=== PATIENT | male | born 1965 | race Caucasian/White ===

== ENCOUNTER 2016-11-03 19:46 | Observation (INO) | payer MEDICARE, MEDICAID ==
[2016-11-03] MEDS ORDERED: Sodium Chloride 0.9% 10 ML Syringe FLUSH PRN ×2 (19:51→21:50)
[2016-11-03] MEDS ORDERED: Sodium Chloride 0.9% 2.5 ML Syringe FLUSH PRN ×2 (19:51→21:50)
--- NOTE | 2016-11-03 19:59 | EDM.PDOC ---
ED HPI GENERAL MEDICAL PROBLEM - General Chief Complaint: General Stated Complaint: INTOXICATED Time Seen by Provider: 11/03/16 19:50 - History of Present Illness INITIAL COMMENTS - FREE TEXT/NARRATIVE: HISTORY AND PHYSICAL: History of present illness: Patient 51-year-old white male history of alcohol abuse/dependence who presents status post fall he was drinking tonight he fell striking his right head brought by paramedics history is very unclear due to patient's baseline he denies chest pain patient does complain of neck pain he is not report clear loss of consciousness patient denies abdominal pain or extremity trauma or concern patient doesn't knowledge alcohol use tonight with intoxication and does acknowledge abuse/dependence Review of systems: As per history of present illness and below otherwise all systems reviewed and negative. Past medical history: As per history of present illness and as reviewed below otherwise noncontributory. Surgical history: As per history of present illness and as reviewed below otherwise noncontributory. Social history: No reported history of drug or alcohol abuse. Family history: As per history of present illness and as reviewed below otherwise noncontributory. Physical exam: HEENT: Patient has abrasion contusion and small hematoma to his right temporal and periorbital area, normocephalic, pupils reactive, negative for conjunctival pallor or scleral icterus, mucous membranes moist, throat clear, neck supple, nontender, trachea midline. Lungs: Clear to auscultation, breath sounds equal bilaterally, chest nontender. Heart: S1S2, regular, negative for clicks, rubs, or JVD. Abdomen: Soft, nondistended, nontender. Negative for masses or hepatosplenomegaly. Negative for costovertebral tenderness. Pelvis: Stable nontender. Genitourinary: Deferred. Rectal: Deferred. Extremities: Atraumatic, negative for cords or calf pain. Neurovascular unremarkable. Neuro: Awake, answers questions appropriately follows commands moves all extremities has limited grossly nonfocal exam Diagnostics: CBC CMP UA UDS EtOH EKG chest x-ray CT brain and facial bones cervical spine Therapeutics: IV O2 monitor Impression: #1 observation status post fall #2 blunt head trauma #3 rule out cerebral concussion #4 history of alcohol abuse/dependence with acute intoxication Definitive disposition and diagnosis as appropriate pending reevaluation and review of above. ED ROS GENERAL - Review of Systems Review Of Systems: ROS reveals no pertinent complaints other than HPI. ED EXAM, GENERAL - Physical Exam Exam: See Below (See dictated) Course - Orders/Labs/Meds Orders: Active Orders 24 hr Category Date Time Status Cardiac Monitoring [RC] . DIRECTED Care 11/03/16 19:50 Ordered EKG Documentation Completion [RC] STAT Care 11/03/16 19:50 Ordered Oxygen Therapy, ED [RC] ASDIRECTED Care 11/03/16 19:50 Ordered Pulse Oximetry [RC] ASDIRECTED Care 11/03/16 19:50 Ordered Cervical Spine wo Cont [CT] Stat Exams 11/03/16 19:50 Ordered Head wo Cont [CT] Stat Exams 11/03/16 19:51 Ordered Max Facial Sinus wo Cont [CT] Stat Exams 11/03/16 19:51 Ordered CBC WITH AUTO DIFF [HEME] Stat Lab 11/03/16 19:50 Ordered COMPREHENSIVE METABOLIC PN,CMP [CHEM] Stat Lab 11/03/16 19:50 Ordered DRUG SCREEN, URINE [URCHEM] Stat Lab 11/03/16 19:50 Uncollected ETHANOL BLOOD MEDICAL [CHEM] Stat Lab 11/03/16 19:50 Ordered INR,PT,PROTHROMBIN TIME [COAG] Stat Lab 11/03/16 19:50 Ordered Sodium Chloride 0.9% [Normal Saline] 1,000 ml Med 11/03/16 20:00 Ordered IV STAT Sodium Chloride 0.9% [Saline Flush] Med 11/03/16 19:51 Ordered 10 ml FLUSH ASDIRECTED PRN Sodium Chloride 0.9% [Saline Flush] Med 11/03/16 19:51 Ordered 2.5 ml FLUSH ASDIRECTED PRN Saline Lock Insert [OM.PC] Stat Oth 11/03/16 19:50 Ordered Medication Orders Sodium Chloride (Normal Saline) 1,000 mls @ 125 mls/hr IV STAT [facility] Sodium Chloride (Saline Flush) 10 ml FLUSH ASDIRECTED PRN PRN Reason: Keep Vein Open Sodium Chloride (Saline Flush) 2.5 ml FLUSH ASDIRECTED PRN PRN Reason: Keep Vein Open Meds: Medications Generic Name Dose Route Start Last Admin Trade Name Freq PRN Reason Stop Dose Admin Sodium Chloride 1,000 mls @ 125 mls/hr 11/03/16 20:00 Normal Saline IV STAT CATH[facility]INE Sodium Chloride 10 ml 11/03/16 19:51 Saline Flush FLUSH ASDIRECTED PRN Keep Vein Open Sodium Chloride 2.5 ml 11/03/16 19:51 Saline Flush FLUSH ASDIRECTED PRN Keep Vein Open Departure - Departure Time of Disposition: 19:59 Disposition: Refer to Observation Condition: good (Head injury) Clinical Impression: Head injury, Alcohol abuse Forms: ED Department Discharge - My Orders Last 24 Hours: My Active Orders 11/03/16 19:50 Cardiac Monitoring [RC] . DIRECTED EKG Documentation Completion [RC] STAT Oxygen Therapy, ED [RC] ASDIRECTED Pulse Oximetry [RC] ASDIRECTED Cervical Spine wo Cont [CT] Stat CBC WITH AUTO DIFF [HEME] Stat COMPREHENSIVE METABOLIC PN,CMP [CHEM] Stat DRUG SCREEN, URINE [URCHEM] Stat ETHANOL BLOOD MEDICAL [CHEM] Stat INR,PT,PROTHROMBIN TIME [COAG] Stat Saline Lock Insert [OM.PC] Stat 11/03/16 19:51 Head wo Cont [CT] Stat Max Facial Sinus wo Cont [CT] Stat Sodium Chloride 0.9% [Saline Flush] 10 ml FLUSH ASDIRECTED PRN Sodium Chloride 0.9% [Saline Flush] 2.5 ml FLUSH ASDIRECTED PRN 11/03/16 20:00 Sodium Chloride 0.9% [Normal Saline] 1,000 ml IV STAT - Assessment/Plan Last 24 Hours: My Active Orders 11/03/16 19:50 Cardiac Monitoring [RC] . DIRECTED EKG Documentation Completion [RC] STAT Oxygen Therapy, ED [RC] ASDIRECTED Pulse Oximetry [RC] ASDIRECTED Cervical Spine wo Cont [CT] Stat CBC WITH AUTO DIFF [HEME] Stat COMPREHENSIVE METABOLIC PN,CMP [CHEM] Stat DRUG SCREEN, URINE [URCHEM] Stat ETHANOL BLOOD MEDICAL [CHEM] Stat INR,PT,PROTHROMBIN TIME [COAG] Stat Saline Lock Insert [OM.PC] Stat 11/03/16 19:51 Head wo Cont [CT] Stat Max Facial Sinus wo Cont [CT] Stat Sodium Chloride 0.9% [Saline Flush] 10 ml FLUSH ASDIRECTED PRN Sodium Chloride 0.9% [Saline Flush] 2.5 ml FLUSH ASDIRECTED PRN 11/03/16 20:00 Sodium Chloride 0.9% [Normal Saline] 1,000 ml IV STAT
[2016-11-03] MEDS ORDERED: Sodium Chloride 0.9% 1,000 ML IV SCH (20:00)
[2016-11-03 20:40] LABS: CHLORIDE,CL 110 mmol/L (98-110); SODIUM,NA 140 mmol/L (136-146)
[2016-11-03] MEDS: Nicotine 21 MG/24 Hr Patch TRDERM SCH (22:58)
--- NOTE | 2016-11-04 09:35 | PCM.HP ---
H&P History of Present Illness - General Date of Service: 11/03/16 Admit Problem/Dx: Admission Diagnosis/Problem Admission Diagnosis/Problem Concussion injury of brain Source of Information: Patient History Limitations: Reports: Intoxication - History of Present Illness Initial Comments - Free Text/Narative: 51 y o man with long history of heavy drinking suffered a fall at home under unclear circumstances, hitting his head H e complains mainly of unchanged chronic neck pain, no acute njuries found on x rays, but alcohol level was 242, for which he was admitted Symptom Onset Date: 11/03/16 Neck Pain Score (Numeric/FACES): 10 - Related Data Allergies/Adverse Reactions: Allergies Allergy/AdvReac Type Severity Reaction Status Date / Time No Known Allergies Allergy Verified 11/03/16 19:59 Home Medications: Home Meds FLUoxetine HCl [Prozac] 1 tab PO DAILY 11/03/16 [History] Gabapentin [Neurontin] 1 tab PO TID 11/03/16 [History] OLANZapine [ZyPREXA] 1 tab PO BID 11/03/16 [History] busPIRone [Buspar] 1 tab PO TID 11/03/16 [History] Past Medical History Cardiovascular History: Reports: High cholesterol, Hypertension Gastrointestinal History: Reports: Other (see below) Other Gastrointestinal History: stomach ulcer Musculoskeletal History: Reports: Neck pain, chronic Psychiatric History: Reports: Anxiety, Depression Endocrine/Metabolic History: Reports: Hyperthyroidism - Infectious Disease History Infectious Disease History: Reports: Chicken pox - Past Surgical History Cardiovascular Surgical History: Reports: None GI Surgical History: Reports: Cholecystectomy, Colostomy, EGD Endocrine Surgical History: Reports: None Musculoskeletal Surgical History: Reports: None Dermatological Surgical History: Reports: None Social & Family History - Family History Family Medical History: Noncontributory - Tobacco Use Smoking Status *Q: Current Every Day Smoker Years of Tobacco use: 20 Packs/Tins Daily: 0.5 Used Tobacco, but Quit: No Second Hand Smoke Exposure: Yes - Caffeine Use Caffeine Use: Reports: Coffee, Energy drinks, Tea - Alcohol Use Days Per Week of Alcohol Use: 3 Number of Drinks Per Day: 6 Total Drinks Per Week: 18 Date of Last Drink: 11/03/16 - Recreational Drug Use Recreational Drug Use: Yes Recreational Drug Type: Reports: Marijuana/Hashish Recreational Drug Use Frequency: Not Used In Over 6 Months Recreational Drug Last Use: 11/01/16 H&P Review of Systems - Review of Systems: Review Of Systems: See Below General: Reports: no symptoms HEENT: Reports: other (tooth decay) Pulmonary: Reports: No Symptoms Cardiovascular: Reports: no symptoms Gastrointestinal: Reports: No symptoms, Constipation Genitourinary: Reports: no symptoms Skin: Reports: no symptoms Exam - Exam Exam: See Below - Vital Signs Vital Signs: Last Vital Signs Temp 36.8 C 11/04/16 08:00 Pulse 92 11/04/16 08:00 Resp 18 11/04/16 08:00 BP 136/72 11/04/16 08:00 Pulse Ox 92 L 11/04/16 08:00 Weight: 89.721 kg - Exam General: alert, oriented, cooperative, mild distress HEENT: EOMI, Other (abrasions on R baptist) Neck: other (wearing brace). No: supple Lungs: Clear to auscultation Cardiovascular: regular rate Abdomen: normal bowel sounds (Male) Exam: Deferred Rectal (Males) Exam: Deferred Extremities: other (older abrasions R elbow) Skin: warm. No: intact (abrasions as above) Neurological: other (mild intention tremor) - Patient Data Result Diagrams: 11/03/16 20:05 11/03/16 20:05 *Q Meaningful Use (ADM) - VTE *Q VTE Criteria *Q: VTE Pharmacological Contraindications *Q: Risk of Bleeding - Stroke *Q Stroke Criteria *Q: - AMI *Q AMI Criteria *Q: Problem List Initiated/Reviewed/Updated: Yes Orders Last 24hrs: Active Orders 24 hr Category Date Time Status Ambulate [RC] PER UNIT ROUTINE Care 11/03/16 21:26 Active Oxygen Therapy [RC] PRN Care 11/03/16 21:24 Active VTE/DVT Education [RC] PER UNIT ROUTINE Care 11/03/16 21:24 Active Vital Signs [RC] Q4H Care 11/03/16 21:24 Active Nicotine [Habitrol] Med 11/03/16 21:30 Active 21 mg TRDERM DAILY Sodium Chloride 0.9% [Saline Flush] Med 11/03/16 21:50 Active 10 ml FLUSH ASDIRECTED PRN Sodium Chloride 0.9% [Saline Flush] Med 11/03/16 21:50 Active 2.5 ml FLUSH ASDIRECTED PRN Convert IV to Saline Lock [OM.PC] Routine Oth 11/03/16 21:50 Ordered VTE Pharmacological Contraindications [AST] Per Unit Oth 11/03/16 21:24 Ordered Routine Resuscitation Status Routine Resus Stat 11/03/16 21:24 Ordered Medication Orders Sodium Chloride (Normal Saline) 1,000 mls @ 125 mls/hr IV STAT [facility] Last Admin: 11/03/16 20:12 Dose: 125 mls/hr Nicotine (Habitrol) 21 mg TRDERM DAILY [facility] Last Admin: 11/03/16 22:58 Dose: 21 mg Sodium Chloride (Saline Flush) 10 ml FLUSH ASDIRECTED PRN PRN Reason: Keep Vein Open Sodium Chloride (Saline Flush) 2.5 ml FLUSH ASDIRECTED PRN PRN Reason: Keep Vein Open Sodium Chloride (Saline Flush) 10 ml FLUSH ASDIRECTED PRN PRN Reason: Keep Vein Open Sodium Chloride (Saline Flush) 2.5 ml FLUSH ASDIRECTED PRN PRN Reason: Keep Vein Open Assessment/Plan Comment:: observe for withdrawal, sequelae of closed head injury
[2016-11-04] MEDS: Nicotine 21 MG/24 Hr Patch TRDERM SCH (10:00)
--- NOTE | 2016-11-04 10:16 | PCM.DCSUM1 ---
Discharge Summary - Discharge Data Discharge Date: 11/04/16 Discharge Disposition: Home, Self-Care 01 Condition: Fair - Patient Instructions Diet: No Alcoholic Beverages Activity: As Tolerated - Discharge Plan Home Medications: Home Meds FLUoxetine HCl [Prozac] 1 tab PO DAILY 11/03/16 [History] Gabapentin [Neurontin] 1 tab PO TID 11/03/16 [History] OLANZapine [ZyPREXA] 1 tab PO BID 11/03/16 [History] busPIRone [Buspar] 1 tab PO TID 11/03/16 [History] Forms: ED Department Discharge - Discharge Summary/Plan Comment DC Time >30 min.: No Discharge Summary/Plan Comment: councilled to establish new interests and routines, stay away from alcohol , consider stopping chewing tobacco - General Info Date of Service: 11/04/16 Admission Dx/Problem (Free Text: closed head injury alcohol intoxication Psychiatric problems Functional Status: Reports: pain controlled (still has the usual neck pain for wihich he sees orthopod in [place]) - Review of Systems General: Reports: No Symptoms HEENT: Reports: no symptoms Pulmonary: Reports: no symptoms Cardiovascular: Reports: No Symptoms Gastrointestinal: Reports: No symptoms Genitourinary: Reports: no symptoms Musculoskeletal: Reports: back pain Skin: Reports: no symptoms Neurological: Reports: No Symptoms, Tremors (mild intentionn tremor. no asterixis) Psychiatric: Reports: no symptoms - Patient Data Vitals - Most Recent: Last Vital Signs Temp 36.8 C 11/04/16 08:00 Pulse 92 11/04/16 08:00 Resp 18 11/04/16 08:00 BP 136/72 11/04/16 08:00 Pulse Ox 92 L 11/04/16 08:00 Weight - Most Recent: 89.721 kg I&O - Last 24 hours: Intake & Output 11/03/16 11/04/16 11/04/16 22:59 06:59 14:59 Intake Total 0 Output Total 0 Balance 0 Med Orders - Current: Current Medications Sodium Chloride (Normal Saline) 1,000 mls @ 125 mls/hr IV STAT [facility] Last Admin: 11/03/16 20:12 Dose: 125 mls/hr Nicotine (Habitrol) 21 mg TRDERM DAILY [facility] Last Admin: 11/03/16 22:58 Dose: 21 mg Sodium Chloride (Saline Flush) 10 ml FLUSH ASDIRECTED PRN PRN Reason: Keep Vein Open Sodium Chloride (Saline Flush) 2.5 ml FLUSH ASDIRECTED PRN PRN Reason: Keep Vein Open Sodium Chloride (Saline Flush) 10 ml FLUSH ASDIRECTED PRN PRN Reason: Keep Vein Open Sodium Chloride (Saline Flush) 2.5 ml FLUSH ASDIRECTED PRN PRN Reason: Keep Vein Open - Exam General: Reports: alert, oriented HEENT: Denies: Scleral icterus Neck: Reports: supple (prefers neck flexed on doubled pillow) Lungs: Reports: Clear to auscultation Cardiovascular: Reports: Regular Rate Abdomen: Reports: bowel sounds present (Male) Exam: Deferred Rectal (Males) Exam: Deferred Extremities: Reports: no edema, no tenderness/swelling Skin: Reports: other (abrasions on face,,elbow, clean) Psy/Mental Status: Reports: normal affect, normal mood *Q Meaningful Use (DIS) - VTE *Q VTE Criteria *Q: VTE Pharmacological Contraindications *Q: Risk of Bleeding - Stroke *Q Stroke Criteria *Q: - AMI *Q AMI Criteria *Q:
[2016-11-04 11:11] VITALS: BP 136/72
--- NOTE | 2016-11-04 18:37 | CR ---
EXAM DATE: 11/03/16 PATIENT'S AGE: 51 Patient: NIKUNJ MCPHERSON Facility: [place], [place] Site . Site : 1965 Study: XRay Chest [id number]/29/2017 9:01:11 PM Ordering Physician: Iliana Navas Final Report: TECHNIQUE: Portable AP chest. INDICATION: Fall. FINDINGS: The patient is rotated to the left. Lungs clear. Normal heart size and pulmonary vascularity. No effusion. No pneumothorax. IMPRESSION: No acute chest findings. Dictated by Clyde Kenny MD @ 11/03/2016 9:06:48 PM Dictated by: Clyde Kenny MD @ 11/03/2016 21:06:51 (Electronic Signature) Report Signed by Proxy. [facility]
--- NOTE | 2016-11-04 18:39 | CT ---
EXAM DATE: 11/03/16 PATIENT'S AGE: 51 Patient: NIKUNJ MCPHERSON Facility: [place], [place] Site . Site : 1965 Study: CT Spine Cervical [id number]/29/2017 9:01:29 PM Ordering Physician: Iliana Navas Final Report: TECHNIQUE: Noncontrast CT of the cervical spine with axial, sagittal, and coronal reformatted images. INDICATION: Fall. FINDINGS: No acute cervical spine fracture, dislocation, or prevertebral soft tissue swelling. Canal appears grossly patent. Multilevel facet arthrosis. Mild spondylosis at C5-6. Patchy opacities in the visualized right lung apex could be from infection or aspiration. There is fluid seen within the esophagus. IMPRESSION: 1. No acute cervical spine findings. 2. Patchy right upper lobe opacities which could be pneumonia or aspiration. Please note that all CT scans performed at this facility use dose modulation, iterative reconstruction, and/or weight based dosing when appropriate to reduce radiation dose to as low as reasonably achievable. Dictated by Clyde Kenny MD @ 11/03/2016 9:09:28 PM Dictated by: Clyde Kenny MD @ 11/03/2016 21:09:33 (Electronic Signature) Report Signed by Proxy. [facility]
--- NOTE | 2016-11-04 18:40 | CT ---
EXAM DATE: 11/03/16 PATIENT'S AGE: 51 Patient: NIKUNJ MCPHERSON Facility: [place], [place] Site . Site : 1965 Study: CT Facial [id number]/29/2017 9:03:31 PM Ordering Physician: Iliana Navas Final Report: TECHNIQUE: Noncontrast CT of the facial bones with axial, sagittal, and coronal reformatted images. INDICATION: Fall. FINDINGS: No acute facial bone fractures. The globes appear intact. The visualized facial soft tissues are unremarkable. Multiple dental caries. Opacification of multiple ethmoid air cells. Fluid in the left frontal sinus and left sphenoid sinus. 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 Sclerosis of multiple inferior right mastoid air cells consist with prior mastoiditis. Polyp or retention cyst in the right maxillary sinus. IMPRESSION: 1. No acute facial bone fractures. 2. Acute on chronic left sphenoid and frontal sinusitis. Please note that all CT scans performed at this facility use dose modulation, iterative reconstruction, and/or weight based dosing when appropriate to reduce radiation dose to as low as reasonably achievable. Dictated by Clyde Kenny MD @ 11/03/2016 9:13:08 PM Dictated by: Clyde Kenny MD @ 11/03/2016 21:13:12 (Electronic Signature) Report Signed by Proxy. [facility]
--- NOTE | 2016-11-04 18:40 | CT ---
EXAM DATE: 11/03/16 PATIENT'S AGE: 51 Patient: NIKUNJ MCPHERSON Facility: [place], [place] Site . Site : 1965 Study: CT Head [id number]/29/2017 9:05:42 PM Ordering Physician: Iliana Navas Final Report: INDICATION: fall FINDINGS: No intracranial hemorrhage, mass effect, or evidence for acute infarction. Normal gay=white differentiation. No skull fractures. Sinus disease described on facial bone CT report. IMPRESSION: No acute intracranial findings. Please note that all CT scans performed at this facility use dose modulation, iterative reconstruction, and/or weight based dosing when appropriate to reduce radiation dose to as low as reasonably achievable. Dictated by: Clyde Kenny MD @ 11/03/2016 21:16:24 (Electronic Signature) Report Signed by Proxy. [facility]
== END 2016-11-04 11:50 | disposition home or self-care (01) ==
LOC: MW.ED 19:46 → MW.MS 20:51 → MERGE 20:51
PROVIDERS: ADMIT Internal Medicine; ATTEND Internal Medicine
DX: F10.129 Alcohol abuse with intoxication, unspecified (principal); E78.00 Pure hypercholesterolemia, unspecified; I10 Essential (primary) hypertension; F41.9 Anxiety disorder, unspecified; F32.9 Major depressive disorder, single episode, unspecified; F17.210 Nicotine dependence, cigarettes, uncomplicated; Z90.49 Acquired absence of other specified parts of digestive tract; Y90.8 Blood alcohol level of 240 mg/100 ml or more; Z98.890 Other specified postprocedural states; Z79.899 Other long term (current) drug therapy; S09.90XA Unspecified injury of head, initial encounter
CPT/HCPCS: 36415; 70450; 70486; 71010; 72125; 80053; 80305; 82962; 85025; 85610; 93005; 99285; A9270; G0378; G0480; J7040; 96360; 96361

== ENCOUNTER 2020-01-11 19:59 | Emergency (ER) | payer MEDICAID, MEDICARE ==
[2020-01-11] MEDS ORDERED: Benzocaine 20% Topical Spray UD MUCMEM ONE (20:02)
[2020-01-11] MEDS ORDERED: Lidocaine 2% Viscous Solution 15 ML Cup PO ONE (20:02)
--- NOTE | 2020-01-11 20:04 | EDM.PDOC ---
ED HPI GENERAL MEDICAL PROBLEM - General Chief Complaint: ENT Problem Stated Complaint: EMS ARRIVAL Time Seen by Provider: 01/11/20 20:01 Source of Information: Reports: Patient History Limitations: Reports: No Limitations - History of Present Illness INITIAL COMMENTS - FREE TEXT/NARRATIVE: HISTORY AND PHYSICAL: History of present illness: Patient is a 54-year-old male who presents to the emergency room with complaints of dental pain. He states that a friend called the ambulance because he was complaining of the pain being so bad. He has seen the dentist who has placed josseline liao on penicillin, his follow-up is on 01/19/2020. He called his dentist today who newly prescribed him "some kind of ibuprofen". He states he has taken 2 tablets without any relief. He denies any fever, chills, headache, change in vision, syncope or near syncope. Denies any chest pain, back pain, shortness of breath or cough. Denies any abdominal pain, nausea, vomiting, diarrhea, constipation or dysuria. Has not noted any blood in urine or stool. Patient states he has not eating and drinking appropriately, because it is been so painful to chew his food. Review of systems: As per history of present illness and below otherwise all systems reviewed and negative. Past medical history: As per history of present illness and as reviewed below otherwise noncontributory. Surgical history: As per history of present illness and as reviewed below otherwise noncontributory. Social history: See social history for further information Family history: As per history of present illness and as reviewed below otherwise noncontributory. Physical exam: General: Well-developed and well-nourished 54-year-old male. Alert, oriented with normal variance of developmental delays. Nontoxic in appearance and in no acute distress. HEENT: Atraumatic, normocephalic, pupils equal and reactive bilaterally, negative for conjunctival pallor or scleral icterus, mucous membranes moist, multiple dental caries with mild erythema and mild swelling to the right lower mid gumline. TMs normal bilaterally, throat clear, neck supple, nontender, trachea midline. No drooling or trismus noted. No meningeal signs. No hot potato voice noted. Lungs: Clear to auscultation, breath sounds equal bilaterally, chest nontender. Heart: S1S2, regular rate and rhythm without overt murmur Abdomen: Soft, nondistended, nontender. Skin: Intact, warm, dry. No lesions or rashes noted. Extremities: Atraumatic, moves all extremities per self without difficulty or deficits, negative for cords or calf pain. Neurovascular unremarkable. Neuro: Awake, alert, oriented. Cranial nerves II through XII unremarkable. Cerebellum unremarkable. Motor and sensory unremarkable throughout. Exam nonfocal. Notes: Patient already has a dental appointment on January 18. We discussed using Tylenol and ibuprofen along with the tooth balls that was given here for pain management. Due to his multiple medications and their side effects with narcotics, I will not be prescribing anything for home. Follow-up and supportive care measures were reviewed and discussed. Voices understanding and is agreeable to plan of care. Denies any further questions or concerns at this time. Diagnostics: None Therapeutics: Dental Balls, Tylenol w/ codeine Prescription: None Impression: Dental Caries Dentalgia Plan: 1. Please take the antibiotic as prescribed. 2. Tylenol and/or ibuprofen as needed for pain management. "Tooth Balls" have been given to you; apply along the gumline every 2-3 hours as needed. Do not swallow these; external use only. 3. Follow-up with a dentist for definitive care. Return to the ED as needed and as discussed. Definitive disposition and diagnosis as appropriate pending reevaluation and review of above. dental Pain Score (Numeric/FACES): 7 - Related Data Allergies Allergy/AdvReac Type Severity Reaction Status Date / Time No Known Allergies Allergy Verified 01/11/20 20:17 Home Meds: Home Meds Celecoxib [CeleBREX] 200 mg PO DAILY 10/23/15 [History] DULoxetine HCl [Cymbalta] 60 mg PO DAILY 10/23/15 [History] Gabapentin [Neurontin] 600 mg PO ASDIRECTED 10/23/15 [History] Mirtazapine [Remeron] 30 mg PO ASDIRECTED 10/23/15 [History] OLANZapine [ZyPREXA] 10 mg PO DAILY 10/23/15 [History] Cyclobenzaprine HCl 10 mg PO ASDIRECTED PRN 07/05/16 [History] FLUoxetine HCl [Fluoxetine HCl] 40 mg PO ASDIRECTED 07/05/16 [History] Fenofibrate,Micronized [Fenofibrate] 134 mg PO ASDIRECTED 07/05/16 [History] Gabapentin [Neurontin] 900 mg PO BEDTIME 07/05/16 [History] Levothyroxine Sodium [Levoxyl] 50 mg PO ASDIRECTED 07/05/16 [History] Lurasidone HCl [Latuda] 80 mg PO ASDIRECTED 07/05/16 [History] OLANZapine [ZyPREXA] 30 mg PO BEDTIME 07/05/16 [History] busPIRone HCl [Buspirone HCl] 15 mg PO TID 07/05/16 [History] cloNIDine HCL [Catapres] 0.1 mg PO ASDIRECTED 07/05/16 [History] traZODone HCl [Trazodone HCl] 200 mg PO BEDTIME 07/05/16 [History] FLUoxetine HCl [Prozac] 1 tab PO DAILY 11/03/16 [History] Gabapentin [Neurontin] 1 tab PO TID 11/03/16 [History] OLANZapine [ZyPREXA] 1 tab PO BID 11/03/16 [History] busPIRone [Buspar] 1 tab PO TID 11/03/16 [History] Past Medical History HEENT History: Reports: None Cardiovascular History: Reports: High Cholesterol, Hypertension, None Respiratory History: Reports: None Gastrointestinal History: Reports: GERD, Hiatal Hernia, Other (See Below) Other Gastrointestinal History: stomach ulcer Genitourinary History: Reports: None Musculoskeletal History: Reports: Arthritis, Neck Pain, Chronic Other Musculoskeletal History: chronic neck pain Neurological History: Reports: None Psychiatric History: Reports: Anxiety, Depression Other Psychiatric History: caregiver states he is impulsive Endocrine/Metabolic History: Reports: Hyperthyroidism, Hypothyroidism Hematologic History: Reports: None Immunologic History: Reports: None Oncologic (Cancer) History: Reports: None Dermatologic History: Reports: None - Infectious Disease History Infectious Disease History: Reports: Chicken Pox, None - Past Surgical History GI Surgical History: Reports: Colostomy, Cholecystectomy, EGD Social & Family History - Family History Family Medical History: Noncontributory - Caffeine Use Caffeine Use: Reports: Coffee, Energy Drinks, Tea ED ROS ENT - Review of Systems Review Of Systems: Comprehensive ROS is negative, except as noted in HPI. ED EXAM, ENT - Physical Exam Exam: See Below (See dictation) Course - Vital Signs Last Recorded V/S: Last Vital Signs Temp 97.0 F 01/11/20 20:18 Pulse 89 01/11/20 20:18 Resp 18 01/11/20 20:18 BP 102/69 01/11/20 20:18 Pulse Ox 96 01/11/20 20:18 - Orders/Labs/Meds Meds: Medications Discontinued Medications Generic Name Dose Route Start Last Admin Trade Name Eleazar PRN Reason Stop Dose Admin Acetaminophen/Codeine Phosphate 5 ml 01/11/20 20:06 01/11/20 20:22 Tylenol/Codeine 120-12 Mg/5 Ml PO 01/11/20 20:07 5 ml ONETIME ONE Administration Benzocaine 2 each 01/11/20 20:02 01/11/20 20:22 Hurricaine One 20% MUCMEM 01/11/20 20:03 2 each ONETIME ONE Administration Lidocaine HCl 15 ml 01/11/20 20:02 01/11/20 20:22 Xylocaine 2% Viscous PO 01/11/20 20:03 15 ml ONETIME ONE Administration Departure - Departure Time of Disposition: 20:24 Disposition: Home, Self-Care 01 Clinical Impression: Dentalgia, Dental caries - Discharge Information Instructions: Dental Abscess, [id number] Forms: ED Department Discharge Additional Instructions: The following information is given to patients seen in the emergency department who are being discharged to home. This information is to outline your options for follow-up care. We provide all patients seen in our emergency department with a follow-up referral. The need for follow-up, as well as the timing and circumstances, are variable depending upon the specifics of your emergency department visit. If you don't have a primary care physician on staff, we will provide you with a referral. We always advise you to contact your personal physician following an emergency department visit to inform them of the circumstance of the visit and for follow-up with them and/or the need for any referrals to a consulting specialist. The emergency department will also refer you to a specialist when appropriate. This referral assures that you have the opportunity for follow-up care with a specialist. All of these measure are taken in an effort to provide you with optimal care, which includes your follow-up. Under all circumstances we always encourage you to contact your private physician who remains a resource for coordinating your care. When calling for follow-up care, please make the office aware that this follow-up is from your recent emergency room visit. If for any reason you are refused follow-up, please contact the [facility] Emergency Department at and asked to speak to the emergency department charge nurse. [facility] [address] [place] [address] [id number] 1. Please take the antibiotic as prescribed. 2. Tylenol and/or ibuprofen as needed for pain management. "Tooth Balls" have been given to you; apply along the gumline every 2-3 hours as needed. Do not swallow these; external use only. 3. Follow-up with a dentist for definitive care. Return to the ED as needed and as discussed. Sepsis Event Note (ED) - Focused Exam Vital Signs: Vital Signs Temp Pulse Resp BP Pulse Ox 01/11/20 20:18 97.0 F 89 18 102/69 96
[2020-01-11] MEDS ORDERED: Acetaminophen/Codeine 120-12 MG/5 ML Soln 5 ML UD Cup PO ONE (20:06)
[2020-01-11 20:20] VITALS: BP 102/69
[2020-01-11 22:35] VITALS: PULSE 88
== END 2020-01-11 20:34 | disposition home or self-care (01) ==
LOC: MW.ED 19:59
DX: K02.9 Dental caries, unspecified (principal); I10 Essential (primary) hypertension; F41.9 Anxiety disorder, unspecified; F32.9 Major depressive disorder, single episode, unspecified; E05.90 Thyrotoxicosis, unspecified without thyrotoxic crisis or storm; Z79.899 Other long term (current) drug therapy
CPT/HCPCS: 99282; 99283; A9270-GY